=== PATIENT | male | born 1960 ===

== ENCOUNTER 2021-05-27 07:49 | Day surgery (SDC) | payer BC, OTHER ==
[~2021-05-27 07:49] MED LIST: Lactated Ringers 1,000 ML IV SCH; Sodium Chloride 0.9% 10 ML Syringe FLUSH PRN; Sodium Chloride 0.9% 2.5 ML Syringe FLUSH PRN; Sodium Chloride 0.9% 20 ML SDV IV PRN; fentaNYL 100 MCG/2 ML SDV ONE; propofoL 50 ML ONE
[2021-05-27] MEDS ORDERED: Lidocaine 2% 5 ML SDV ONE (08:08)
--- NOTE | 2021-05-27 08:23 | PCM.PREANE ---
Preanesthetic Assessment - Anesthesia/Transfusion/Family Hx Anesthesia History: Prior Anesthesia Without Reaction Transfusion History: No Prior Transfusion(s) - Review of Systems General: No Symptoms Pulmonary: No Symptoms Cardiovascular: No Symptoms Gastrointestinal: No Symptoms Neurological: No Symptoms Other: Reports: None - Physical Assessment NPO Status Date: 05/27/21 NPO Status Time: 00:00 Vital Signs: Last Vital Signs Temp 97.3 F 05/27/21 08:13 Pulse 85 05/27/21 08:13 Resp 16 05/27/21 08:13 BP 117/75 05/27/21 08:13 Pulse Ox 96 05/27/21 08:13 Height: 6 ft Weight: 190 lb ASA Class: 2 Mental Status: Alert & Oriented x3 Airway Class: Mallampati = 2 Dentition: Reports: Normal Dentition Thyro-Mental Finger Breadths: 3 Mouth Opening Finger Breadths: 3 ROM/Head Extension: Full Lungs: Clear to Auscultation, Normal Respiratory Effort Cardiovascular: Regular Rate, Regular Rhythm - Allergies Allergies/Adverse Reactions: Allergies Allergy/AdvReac Type Severity Reaction Status Date / Time No Known Allergies Allergy Verified 05/27/21 08:12 - Acknowledgements Anesthesia Type Planned: General Anesthesia Pt an Appropriate Candidate for the Planned Anesthesia: Yes Alternatives and Risks of Anesthesia Discussed w Pt/Guardian: Yes Pt/Guardian Understands and Agrees with Anesthesia Plan: Yes PreAnesthesia Questionnaire HEENT History: Reports: None, Allergic Rhinitis Cardiovascular History: Reports: None Respiratory History: Reports: Other (See Below) Other Respiratory History: childhood asthma Gastrointestinal History: Reports: Other (See Below) Other Gastrointestinal History: epigastric pain Genitourinary History: Reports: None Musculoskeletal History: Reports: None Neurological History: Reports: None Psychiatric History: Reports: None Endocrine/Metabolic History: Reports: None Hematologic History: Reports: None Immunologic History: Reports: None Oncologic (Cancer) History: Reports: None Dermatologic History: Reports: None - Past Surgical History Head Surgeries/Procedures: Reports: None HEENT Surgical History: Reports: None Cardiovascular Surgical History: Reports: None Respiratory Surgical History: Reports: None GI Surgical History: Reports: Appendectomy Male Surgical History: Reports: None Endocrine Surgical History: Reports: None Neurological Surgical History: Reports: None Musculoskeletal Surgical History: Reports: None Oncologic Surgical History: Reports: None Dermatological Surgical History: Reports: None - SUBSTANCE USE Tobacco Use Status *Q: Former Tobacco User Tobacco Use Within Last Twelve Months: No - HOME MEDS Home Medications: Home Meds Aspirin [Adult Aspirin Regimen] 81 mg PO DAILY 05/21/21 [History] L.acidoph,Paracasei, B.lactis [Probiotic] 1 tab PO DAILY 05/21/21 [History] Multivitamin/Iron/Folic Acid [Centrum Adults Tablet] 1 tab PO DAILY 05/21/21 [History] Nac/Ala/Milk Thistle/Selenomet [Liver Protect Capsule] 1 tab PO DAILY 05/21/21 [History] Pantoprazole Sodium [Protonix] 40 mg PO DAILY 05/21/21 [History] diphenhydrAMINE HCL [Allergy Medication] 2 tab PO DAILY 05/21/21 [History] - CURRENT (IN HOUSE) MEDS Current Meds: Current Medications Lactated Ringer's (Ringers, Lactated) 1,000 mls @ 125 mls/hr IV ASDIRECTED ROBERT Sodium Chloride (Sodium Chloride 0.9% 10 Ml Syringe) 10 ml FLUSH ASDIRECTED PRN PRN Reason: Keep Vein Open Sodium Chloride (Sodium Chloride 0.9% 2.5 Ml Syringe) 2.5 ml FLUSH ASDIRECTED PRN PRN Reason: Keep Vein Open Sodium Chloride (Sodium Chloride 0.9% 10 Ml Syringe) 10 ml FLUSH ASDIRECTED PRN PRN Reason: Keep Vein Open Sodium Chloride (Sodium Chloride 0.9% 2.5 Ml Syringe) 2.5 ml FLUSH ASDIRECTED PRN PRN Reason: Keep Vein Open Sodium Chloride (Sodium Chloride 0.9% 20 Ml Sdv) 10 ml IV ASDIRECTED PRN PRN Reason: IV Use Discontinued Medications Fentanyl (Fentanyl 100 Mcg/2 Ml Sdv) Confirm Administered Dose 100 mcg .ROUTE .STK-MED ONE Stop: 05/27/21 07:28 Propofol (Diprivan 50 Ml) Confirm Administered Dose 50 mls @ as directed .ROUTE .STK-MED ONE Stop: 05/27/21 07:16 Lidocaine (Lidocaine 2% 5 Ml Sdv) Confirm Administered Dose 5 ml .ROUTE .STK-MED ONE Stop: 05/27/21 08:09
[2021-05-27] MEDS ORDERED: Ondansetron 4 MG/2 ML SDV ONE (08:50)
--- NOTE | 2021-05-27 09:49 | PCM48HPAN ---
Post Anesthesia Note - EVALUATION WITHIN 48HRS OF ANESTHETIC Vital Signs in Normal Range: Yes Patient Participated in Evaluation: Yes Respiratory Function Stable: Yes Airway Patent: Yes Cardiovascular Function Stable: Yes Hydration Status Stable: Yes Pain Control Satisfactory: Yes Nausea and Vomiting Control Satisfactory: Yes Mental Status Recovered: Yes Vital Signs: Last Vital Signs Temp 97.3 F 05/27/21 08:25 Pulse 85 05/27/21 08:25 Resp 16 05/27/21 08:13 BP 117/75 05/27/21 08:13 Pulse Ox 96 05/27/21 08:13
--- NOTE | 2021-05-27 09:49 | PCM.POSTAN ---
POST ANESTHESIA ASSESSMENT - MENTAL STATUS Mental Status: Alert, Oriented - VITAL SIGNS Vital Signs: Last Vital Signs Temp 97.3 F 05/27/21 08:25 Pulse 85 05/27/21 08:25 Resp 16 05/27/21 08:13 BP 117/75 05/27/21 08:13 Pulse Ox 96 05/27/21 08:13 - RESPIRATORY Respiratory Status: Respiratory Rate WNL, Airway Patent, O2 Saturation Stable - CARDIOVASCULAR CV Status: Pulse Rate WNL, Blood Pressure Stable - GASTROINTESTINAL GI Status: No Symptoms - POST OP HYDRATION Hydration Status: Adequate & Stable
--- NOTE | 2021-05-27 09:58 | PCM.OPNOTE ---
- General Post-Op/Procedure Note Date of Surgery/Procedure: 05/27/21 Operative Procedure(s): Diagnostic egd and screening colonoscopy Findings: Normal appearing EGD and colonoscopy Pre Op Diagnosis: Epigastric pain, screening colonoscopy Post-Op Diagnosis: Normal colonoscopy, epigastric pain Anesthesia Technique: General Mask Primary Surgeon: Beulah Vargas Condition: Good
--- NOTE | 2021-05-27 15:23 | OR ---
SURGEON: BEULAH VARGAS MD DATE OF PROCEDURE: 05/27/2021 PREOPERATIVE DIAGNOSES: Epigastric pain, screening colonoscopy. POSTOPERATIVE DIAGNOSES: Epigastric pain, normal colonoscopy. PROCEDURES PERFORMED: Diagnostic esophagogastroduodenoscopy and screening colonoscopy. PRIMARY SURGEON: Beulah Vargas MD ANESTHESIA: General mask. INSTRUMENTS USED: Olympus endoscope and colonoscope. EXTENT OF EXAM: To the second portion of duodenum, to the cecum. PREPARATION: Good. LIMITATIONS: None. INDICATIONS FOR EXAMINATION: The patient is a 60-year-old male who presents with chronic epigastric pain. He is also due for screening colonoscopy. I consented the patient for both a diagnostic EGD and a screening colonoscopy. I explained the procedures, expected perioperative course, and the risks. He verbalized understanding and wishes to proceed. PROCEDURE IN DETAIL: Patient was brought in to the endoscopy suite and placed in a left lateral decubitus position. A time-out was completed verifying the patient's name, age, date of , allergies, and procedure to be performed. Anesthesia was induced and continuous oxygen was provided via nasal cannula throughout the procedure. After adequate sedation was achieved, a well-lubricated endoscope was placed in the patient's mouth and advanced under direct visualization to the second portion of duodenum. This appeared normal and a photograph was taken. The scope was then fully withdrawn while examining the color, texture, anatomy, and integrity of the mucosa of the upper GI tract. There were no abnormalities noted throughout the exam. Biopsies were taken of the duodenal mucosa. The stomach appeared anatomically normal and photographs were taken of the pylorus and GE junction. Biopsies were taken of the gastric antrum, body, and fundus and sent for histologic review and H pylori testing. The scope was brought into the distal esophagus and a photograph was taken of the Z-line. A biopsy was taken 1 cm above the Z-line and sent to Pathology labeled as esophagus. The scope was removed and this portion of procedure terminated. A digital rectal exam was performed. This exam was within normal limits. A well-lubricated colonoscope was inserted in the rectum and advanced under direct visualization to the level of the cecum. Cecum was identified by both visual and anatomic landmarks. A photograph was taken of the cecal cap, however, I could not retroflex the scope within the cecum due to looping of the scope more proximally. The scope was then fully withdrawn while examining the color, texture, anatomy, and integrity of mucosa from the cecum to the anal canal. The findings were consistent with normal colonic mucosa. The scope was then brought into the rectum and retroflexed to allow visualization of the anal canal opening. This appeared normal and a photograph was taken. The scope was then straightened out and fully withdrawn. The cecum to anus time was 8 minutes. The patient tolerated the procedure well and transferred to the PACU in stable condition. ENDOSCOPIC DIAGNOSES: Epigastric pain, normal colonoscopy. RECOMMENDATION: We will follow up in clinic in two weeks. VICK GURROLA /[id number]
== END 2021-05-27 10:30 | disposition home or self-care (01) ==
LOC: MW.SDS 07:49
PROVIDERS: ATTEND Surgery
DX: Z12.11 Encounter for screening for malignant neoplasm of colon (principal); R10.13 Epigastric pain; G89.29 Other chronic pain; Z79.82 Long term (current) use of aspirin; Z79.899 Other long term (current) drug therapy; Z98.890 Other specified postprocedural states; Z87.891 Personal history of nicotine dependence
CPT/HCPCS: 43239; 45378; J2405; J2704; J3010; J7120